=== PATIENT | male | born 1955 | race Caucasian/White ===

== ENCOUNTER 2017-10-10 02:19 | Emergency (ER) | payer OTHER ==
[2017-10-10 02:42] VITALS: TEMP 97.6; BMI 25.7
[2017-10-10] MEDS ORDERED: ALBUTEROL SO4 2.5/IPRATROPIUM 0.5 INH SOL 3 ML VIAL.NEB. NEB ONE ×2 (03:06→07:10)
[2017-10-10] MEDS ORDERED: methylPREDNISolone NA SUCC 125 MG/2 ML VIAL IVPB ONE (03:07)
[2017-10-10] MEDS ORDERED: methylPREDNISolone NA SUCC 125 MG/2 ML VIAL ONE (03:26)
[2017-10-10] MEDS ORDERED: MAGNESIUM SULF 50% (8.12 MEQ/2 ML-1 GM VIAL) IVPB ONE (03:30)
[2017-10-10 03:41] LABS: BASO % 1.5 % (0-2.0); EOS % 14.5 % (0-4.5); HEMATOCRIT 42.6 % (35.4-49); HEMOGLOBIN 14.4 GM/dL (11.7-16.9); LYMPH % 31.7 % (8-40); MCH 29.5 pg (25.7-33.7); MCHC 33.8 g/dl (32.0-35.9); MEAN CELL VOLUME 87.2 fl (80-96); MEAN PLT VOLUME 6.5 fl (7.5-11.1); MONO % 8.5 % (3.8-10.2); NEUT % 43.8 % (42.8-82.8); PLATELET COUNT 249 K/MM3 (134-434); RBC 4.89 M/mm3 (4.00-5.60); RDW 14.6 % (11.9-15.9)
[2017-10-10] MEDS ORDERED: MAGNESIUM SULFATE IN WATER 2 GM/50 ML IVPB IVPB ONE (03:45)
[2017-10-10 04:01] LABS: INR 0.99 (0.82-1.09); PROTHROMBIN TIME (PATIENT) 11.2 SEC (9.98-11.88)
--- NOTE | 2017-10-10 04:05 | PDOC ---
History of Present Illness - General History Source: Patient Exam Limitations: No Limitations - History of Present Illness Initial Comments: 10/10/17 04:08 The patient is a 61 year old male, with a significant past medical history of asthma and hypertension, who presents to the emergency department with, shortness of breath. As per patient, he has a difficulty breathing after walking short distances. He reports using his asthma pump, without relief. Secondary to his symptoms, he reports a nonproductive cough. 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 He denies any recent fevers, chills, headache or dizziness. He denies any recent nausea, vomit, diarrhea or constipation. He denies any recent chest pain. He denies any recent dysuria, frequency, urgency or hematuria. Allergies: NKA Past surgical history: None reported. Social History: Denies EtOH use and recreational drug use. Primary Care Physician: Dr. Rafael Hampton <Carmen Becerra - Last Filed: 10/10/17 05:59> <Stacy Falcon - Last Filed: 10/10/17 07:12> - General Chief Complaint: Asthma Stated Complaint: ASTHMA Time Seen by Provider: 10/10/17 02:32 Past History <Carmen Becerra - Last Filed: 10/10/17 05:59> - Past Medical History Asthma: Yes COPD: No GI Disorders: Yes (acid reflux) HTN: Yes Hypercholesterolemia: Yes - Immunization History Immunization Up to Date: No - Suicide/Smoking/Psychosocial Hx Smoking Status: No Smoking History: Never smoked Have you smoked in the past 12 months: No Number of Cigarettes Smoked Daily: 0 If you are a former smoker, when did you quit?: 15YRS AGO Information on smoking cessation initiated: No Hx Alcohol Use: No Drug/Substance Use Hx: No Substance Use Type: None Hx Substance Use Treatment: No <Stacy Falcon - Last Filed: 10/10/17 07:12> - Past Medical History Allergies/Adverse Reactions: Allergies Allergy/AdvReac Type Severity Reaction Status Date / Time No Known Allergies Allergy Verified 10/10/17 02:39 Home Medications: Ambulatory Orders Acetaminophen [Tylenol .Regular Strength -] 650 mg PO Q4H PRN #0 tablet Amlodipine Besylate [Norvasc -] 5 mg PO DAILY #0 tablet 01/30/13 Atorvastatin Ca [Lipitor] 20 mg PO HS #0 tablet 01/30/13 Meclizine HCl [Antivert -] 25 mg PO TID #0 tablet 01/30/13 Pantoprazole Sodium [Protonix -] 40 mg PO DAILY #0 tablet.ec 01/30/13 Review of Systems - Review of Systems Able to Perform ROS?: Yes Comments:: 10/10/17 04:08 GENERAL/CONSTITUTIONAL: No fever or chills. No weakness. HEAD, EYES, EARS, NOSE AND THROAT: No change in vision. No ear pain or discharge. No sore throat. CARDIOVASCULAR: No chest pain or shortness of breath. RESPIRATORY: +Difficulty breathing. +Cough. No hemoptysis. GASTROINTESTINAL: No nausea, vomiting, diarrhea or constipation. GENITOURINARY: No dysuria, frequency, or change in urination. MUSCULOSKELETAL: No joint or muscle swelling or pain. No neck or back pain. SKIN: No rash NEUROLOGIC: No headache, vertigo, loss of consciousness, or change in strength/ sensation. ENDOCRINE: No increased thirst. No abnormal weight change. HEMATOLOGIC/LYMPHATIC: No anemia, easy bleeding, or history of blood clots. ALLERGIC/IMMUNOLOGIC: No hives or skin allergy. All Other Systems: Reviewed and Negative <Carmen Becerra - Last Filed: 10/10/17 05:59> *Physical Exam - Vital Signs Last Vital Signs Temp Pulse Resp BP Pulse Ox 97.6 F 78 18 133/81 98 10/10/17 02:40 10/10/17 02:40 10/10/17 02:40 10/10/17 02:40 10/10/17 02:40 - Physical Exam Comments: 10/10/17 04:09 GENERAL: Awake, alert, and fully oriented, in no acute distress HEAD: No signs of trauma EYES: PERRLA, EOMI, sclera anicteric, conjunctiva clear ENT: Auricles normal inspection, hearing grossly normal, nares patent, oropharynx clear without exudates. Moist mucosa NECK: Normal ROM, supple, no lymphadenopathy, JVD, or masses LUNGS: +Diffuse bilateral wheezing. No crackles HEART: Regular rate and rhythm, normal S1 and S2, no murmurs, rubs or gallops ABDOMEN: Soft, nontender, normoactive bowel sounds. No guarding, no rebound. No masses EXTREMITIES: Normal range of motion, no edema. No clubbing or cyanosis. No cords, erythema, or tenderness NEUROLOGICAL: Cranial nerves II through XII grossly intact. Normal speech, normal gait SKIN: Warm, Dry, normal turgor, no rashes or lesions noted. <Carmen Becerra - Last Filed: 10/10/17 05:59> - Vital Signs Last Vital Signs Temp Pulse Resp BP Pulse Ox 97.6 F 78 18 133/81 98 10/10/17 02:40 10/10/17 02:40 10/10/17 02:40 10/10/17 02:40 10/10/17 02:40 <Stacy Falcon - Last Filed: 10/10/17 07:12> ED Treatment Course - LABORATORY CBC & Chemistry Diagram: 10/10/17 03:24 10/10/17 03:24 - ADDITIONAL ORDERS Additional order review: Laboratory Results 10/10/17 03:24 PT with INR 11.20 INR 0.99 10/10/17 03:24 RBC 4.89 MCV 87.2 MCHC 33.8 RDW 14.6 MPV 6.5 L Neutrophils % 43.8 D Lymphocytes % 31.7 D Monocytes % 8.5 Eosinophils % 14.5 H D Basophils % 1.5 D - Medications Given in the ED: ED Medications Discontinued Medications Generic Name Dose Route Start Last Admin Trade Name Freq PRN Reason Stop Dose Admin Albuterol/Ipratropium 1 amp 10/10/17 03:06 10/10/17 03:41 Duoneb - NEB 10/10/17 03:07 1 amp ONCE ONE Administration Methylprednisolone Sodium Succinate 125 mg 10/10/17 03:07 10/10/17 03:41 Solu-Medrol - IVPB 10/10/17 03:08 125 mg ONCE ONE Administration <Carmne Becerra - Last Filed: 10/10/17 05:59> - LABORATORY CBC & Chemistry Diagram: 10/10/17 03:24 10/10/17 03:24 - ADDITIONAL ORDERS Additional order review: Laboratory Results 10/10/17 03:24 PT with INR 11.20 INR 0.99 10/10/17 03:24 RBC 4.89 MCV 87.2 MCHC 33.8 RDW 14.6 MPV 6.5 L Neutrophils % 43.8 D Lymphocytes % 31.7 D Monocytes % 8.5 Eosinophils % 14.5 H D Basophils % 1.5 D - RADIOLOGY Radiology Studies Ordered: Category Date Time Status CHEST PA & LAT [RAD] Stat Radiology 10/10/17 03:07 Ordered - Medications Given in the ED: ED Medications Discontinued Medications Generic Name Dose Route Start Last Admin Trade Name Robin PRN Reason Stop Dose Admin Albuterol/Ipratropium 1 amp 10/10/17 03:06 10/10/17 03:41 Duoneb - NEB 10/10/17 03:07 1 amp ONCE ONE Administration Methylprednisolone Sodium Succinate 125 mg 10/10/17 03:07 10/10/17 03:41 Solu-Medrol - IVPB 10/10/17 03:08 125 mg ONCE ONE Administration <Stacy Falcon - Last Filed: 10/10/17 07:12> Medical Decision Making - Medical Decision Making 10/10/17 06:00 EXAM: CHEST PA \T\ LAT HISTORY: Rule out pneumonia COMPARISON: None. FINDINGS: The cardiomediastinal silhouette is normal. The lungs are clear. The bones and soft tissues are normal IMPRESSION: Normal chest. Read by: Shan Mckeon MD <Carmen Becerra - Last Filed: 10/10/17 05:59> - Medical Decision Making 10/10/17 05:47 Referring Physician: ROBBIN ALFONSO Patient Name: RHONDA GAMEZ THIS IS A PRELIMINARY REPORT FROM [facility] DATE OF SERVICE: 2017-10-10 04:11:23 IMAGES: 3 EXAM: CHEST PA \T\ LAT HISTORY: Rule out pneumonia COMPARISON: None. FINDINGS: The cardiomediastinal silhouette is normal. The lungs are clear. The bones and soft tissues are normal IMPRESSION: Normal chest 10/10/17 07:11 Pt will require another dose of albuterol. He will be signed out to the day doctors. He may also get a 2nd cardiac enzymes. <Stacy Falcon - Last Filed: 10/10/17 07:12> *DC/Admit/Observation/Transfer - Attestations Scribe Attestion: 10/10/17 04:09 Documentation prepared by Carmen Becerra, acting as medical records assistant for Stacy Falcon MD. <Carmen Becerra - Last Filed: 10/10/17 05:59> <Stacy Falcon - Last Filed: 10/10/17 07:12> Diagnosis at time of Disposition: Asthma exacerbation, Chest pain - Discharge Dispostion Condition at time of disposition: Guarded - Referrals Referrals: Rafael Hampton MD [Primary Care Provider] - - Patient Instructions - Post Discharge Activity
[2017-10-10 04:11] LABS: ALBUMIN 4.1 g/dl (3.4-5.0); ANION GAP 7 (8-16); BILIRUBIN,TOTAL 0.5 mg/dL (0.2-1.0); BLOOD UREA NITROGEN 12 mg/dL (7-18); CALCIUM 8.1 mg/dL (8.5-10.1); CHLORIDE 104 mmol/L (98-107); CO2 30 mmol/L (21-32); CREATININE 1.1 mg/dL (0.7-1.3); GLUCOSE,RANDOM 101 mg/dL (74-106); POTASSIUM 3.9 mmol/L (3.5-5.1); SGOT/AST 24 U/L (15-37); SGPT/ALT 26 U/L (12-78); SODIUM 141 mmol/L (136-145)
[2017-10-10 04:13] LABS: ALK PHOS 74 U/L (45-117)
[2017-10-10] MEDS ORDERED: TERBUTALINE SULFATE 1 MG/1 ML VIAL SQ ONE ×2 (06:00→06:16)
[2017-10-10] MEDS ORDERED: ALBUTEROL SO4 0.083% IH SOL 2.5 MG/3 ML VIAL.NEB. NEB ONE ×2 (08:12→08:23)
--- NOTE | 2017-10-10 08:41 | EKG ---
Test Reason : Blood Pressure : / mmHG Vent. Rate : 070 BPM Atrial Rate : 070 BPM P-R Int : 188 ms QRS Dur : 092 ms QT Int : 418 ms P-R-T Axes : 067 -29 026 degrees QTc Int : 451 ms POOR DATA QUALITY, INTERPRETATION MAY BE ADVERSELY AFFECTED NORMAL SINUS RHYTHM INCOMPLETE RIGHT BUNDLE BRANCH BLOCK BORDERLINE ECG WHEN COMPARED WITH ECG OF 29-JAN-2013 09:49, INCOMPLETE RIGHT BUNDLE BRANCH BLOCK IS NOW PRESENT Confirmed by JUSTIN JORGE, DAMI ([id number]) on 10/10/2017 8:41:05 AM Referred By: Confirmed By:DAMI ANDERSON MD
--- NOTE | 2017-10-10 09:29 | PDOC ---
*Physical Exam - Vital Signs Last Vital Signs Temp Pulse Resp BP Pulse Ox 97.6 F 77 18 118/60 95 10/10/17 02:40 10/10/17 07:30 10/10/17 02:40 10/10/17 07:30 10/10/17 08:05 - Physical Exam Comments: 10/10/17 09:26 "GENERAL: Awake, alert, and fully oriented, in no acute distress HEAD: No signs of trauma EYES: PERRLA, EOMI, sclera anicteric, conjunctiva clear ENT: Auricles normal inspection, hearing grossly normal, nares patent, oropharynx clear without exudates. Moist mucosa NECK: Nontender, no stepoffs, Normal ROM, supple, no lymphadenopathy, JVD, or masses LUNGS: minimal bilateral expiratory wheezes HEART: Regular rate and rhythm, normal S1 and S2, no murmurs, rubs or gallops ABDOMEN: Soft, nontender, normoactive bowel sounds. No guarding, no rebound. No masses EXTREMITIES: Normal range of motion, no edema. No clubbing or cyanosis. No cords, erythema, or tenderness NEUROLOGICAL: Cranial nerves II through XII intact. 5/5 strength and sensation in all extremities, Normal speech, normal gait SKIN: Warm, Dry, normal turgor, no rashes or lesions noted. " ED Treatment Course - LABORATORY CBC & Chemistry Diagram: 10/10/17 03:24 10/10/17 03:24 - ADDITIONAL ORDERS Additional order review: Laboratory Results 10/10/17 10/10/17 10/10/17 08:10 03:24 03:24 PT with INR 11.20 INR 0.99 Sodium 141 Potassium 3.9 Chloride 104 D Carbon Dioxide 30 Anion Gap 7 L BUN 12 Creatinine 1.1 D Creat Clearance w eGFR > 60 Random Glucose 101 Calcium 8.1 L Total Bilirubin 0.5 D AST 24 D ALT 26 Alkaline Phosphatase 74 Creatine Kinase 376 H 404 H Creatine Kinase Index 0.4 0.4 CK-MB (CK-2) 1.738 1.718 Troponin I < 0.02 < 0.02 Total Protein 7.0 Albumin 4.1 10/10/17 03:24 RBC 4.89 MCV 87.2 MCHC 33.8 RDW 14.6 MPV 6.5 L Neutrophils % 43.8 D Lymphocytes % 31.7 D Monocytes % 8.5 Eosinophils % 14.5 H D Basophils % 1.5 D - Medications Given in the ED: ED Medications Discontinued Medications Generic Name Dose Route Start Last Admin Trade Name Robin PRN Reason Stop Dose Admin Albuterol Sulfate 1 amp 10/10/17 08:12 10/10/17 08:25 Ventolin 0.083% Nebulizer Soln - NEB 10/10/17 08:13 1 amp ONCE ONE Administration Albuterol/Ipratropium 1 amp 10/10/17 03:06 10/10/17 03:41 Duoneb - NEB 10/10/17 03:07 1 amp ONCE ONE Administration Albuterol/Ipratropium 1 amp 10/10/17 07:10 10/10/17 07:35 Duoneb - NEB 10/10/17 07:11 1 amp ONCE ONE Administration MAGNESIUM SULFATE IN WATER 2 gm in 50 mls @ 50 mls/hr 10/10/17 03:45 03:41 Magnesium Sulf 2 G/50 Ml Bag IVPB 10/10/17 04:44 50 mls/hr ONCE ONE Administration Methylprednisolone Sodium Succinate 125 mg 10/10/17 03:07 10/10/17 03:41 Solu-Medrol - IVPB 10/10/17 03:08 125 mg ONCE ONE Administration Terbutaline Sulfate 0.25 mg 10/10/17 06:00 10/10/17 06:21 Brethine Injection - SQ 10/10/17 06:01 0.25 mg ONCE ONE Administration Medical Decision Making - Medical Decision Making 10/10/17 09:26 Sign out received at 7am. 61 M with asthma exacerbation. Pt received duonebs x 2, albuterol x1, mag, steroids, terbutalline. Reassessed at 9am - now with significant improvement in breathing. Lung exam notable only for mild expiratory wheezes. Pt ambulatory in ER with stable vitals. Clinically stable for DC at this time. I discussed the physical exam findings, ancillary test results and final diagnoses with the patient. I answered all of the patient's questions. The patient was satisfied with the care received and felt comfortable with the discharge plan and treatment plan. The patient agrees to follow up with the primary care physician within 24-72 hours. *DC/Admit/Observation/Transfer Diagnosis at time of Disposition: Asthma exacerbation, Chest pain - Discharge Dispostion Disposition: HOME Condition at time of disposition: Good - Prescriptions Prescriptions: Albuterol 0.083% Nebulizer Livia [Ventolin 0.083% Nebulizer Soln -] 1 neb NEB Q4H #30 vial Prednisone [Prednisone 50 MG TABLETS] 50 mg PO DAILY #4 tablet - Referrals Referrals: Rafael Hampton MD [Primary Care Provider] - - Patient Instructions Printed Discharge Instructions: Asthma -- Adult Additional Instructions: registered occupational therapist your prescriptions for albuterol nebulizer and prednisone. Take the prednisone once daily for 4 more days, starting tomorrow. Use your albuterol nebulizer every 4 hours as needed for shortness of breath or wheezing. If you experience any worsening shortness of breath, chest pain, fevers, or any other concerning symptoms, return to the ER immediately. Otherwise, follow up with your primary doctor tomorrow for a re-evaluation. - Post Discharge Activity - Attestations Physician Attestion: 10/10/17 09:28 I, Dr. Royal Woo MD, attest that this document has been prepared under my direction and personally reviewed by me in its entirety. I further attest, that it accurately reflects all work, treatment, procedures and medical decision -making performed by me.
[2017-10-10 09:44] VITALS: BP 124/76; PULSE 92
== END 2017-10-10 09:44 | disposition home or self-care (01) ==
LOC: JER 02:19
PROC: 3E0F7GC Introduction of Other Therapeutic Substance into Respiratory Tract, Via Natural or Artificial Opening (ICD-10-PCS; principal; 2017-10-10)
PROC: 3E0F7GC Introduction of Other Therapeutic Substance into Respiratory Tract, Via Natural or Artificial Opening (ICD-10-PCS; 2017-10-10)
PROC: 3E0F7GC Introduction of Other Therapeutic Substance into Respiratory Tract, Via Natural or Artificial Opening (ICD-10-PCS; 2017-10-10)
PROC: 3E033GC Introduction of Other Therapeutic Substance into Peripheral Vein, Percutaneous Approach (ICD-10-PCS; 2017-10-10)
PROC: 3E0333Z Introduction of Anti-inflammatory into Peripheral Vein, Percutaneous Approach (ICD-10-PCS; 2017-10-10)
PROC: 3E013GC Introduction of Other Therapeutic Substance into Subcutaneous Tissue, Percutaneous Approach (ICD-10-PCS; 2017-10-10)
DX: J45.901 Unspecified asthma with (acute) exacerbation (principal); R07.89 Other chest pain
CPT/HCPCS: 36415; 71046-TC-FY; 80053; 82550; 82553; 84484; 85025; 85610; 93005; 93010; 99282-25